=== PATIENT | female | born 1960 | race Hispanic/Latino ===

== ENCOUNTER 2019-09-29 15:30 | Outpatient (CLI) | payer BC ==
--- NOTE | 2019-09-29 16:01 | RAD ---
Left knee 2 views HISTORY: Left knee pain. FINDINGS: Mild tricompartmental joint space narrowing. Moderate osteophytosis. No acute fracture, dis location, or fluid distention of the suprapatellar bursa. Mild superficial suprapatellar soft tissue swelling is apparent. There is calcification over the arterial structures. IMPRESSION : Mild to moderate osteoarthritic changes. Atherosclerosis.
--- NOTE | 2019-09-29 16:03 | RAD ---
Right knee 2 views HISTORY: Right knee pain. Findings: Mild tricompartmental osteophytosis and joint space narrowing. There are 3 tiny irregular s haped calcifications projecting over the posterior lateral aspect of the medial compartment. Small amount of fluid distends the suprapatellar bursa. No acute fracture, dislocation, or aggressive osseo us erosions. Calcifications overlie the arterial structures. IMPRESSION : Mild osteoarthritic changes. Small medial compartment intracapsular loose bodies. Small joint effusion.
== END 2019-09-29 15:31 | disposition home or self-care (01) ==
LOC: BICRAD 15:30
PROVIDERS: ATTEND Internal Medicine Rheumatology
DX: M25.561 Pain in right knee (principal); M25.562 Pain in left knee; M17.0 Bilateral primary osteoarthritis of knee; I70.90 Unspecified atherosclerosis

== ENCOUNTER 2020-03-18 18:43 | Emergency (ER) | payer BC ==
[~2020-03-18 18:43] MED LIST: Iopamidol-370 76% 500 ML 1 ML ONE
[2020-03-18] MEDS ORDERED: Ondansetron PF 4 MG/2 ML Vial ONE (21:04)
[2020-03-18] MEDS ORDERED: Ketorolac Tromethamine 30 MG/ML VIAL ONE (21:04)
[2020-03-18 21:19] LABS: Pregnancy Test - Urine (BHCG) Negative (Negative)
[2020-03-18 21:20] LABS: Bacteria/HPF 3+ HPF (None Seen); Bilirubin Negative (Negative); Blood, Urine Trace (Negative); Clarity Clear (Clear); Glucose, Urine (Dipstick) Greater than 1000 mg/dL (Negative); Ketone, Urine Greater than 150 mg/dL (Negative); Leukocyte Negative Leu/uL (Negative); Nitrite Negative (Negative); Pregu Control Background? CLEAR/WHITE (CLR/WHITE); Pregu Control Bar Appear? YES (CONTROL BAR); Protein, Urine (Dipstick) 50 mg/dL (Neg-Trace); Specific Gravity 1.029 (1.002-1.036); Specific Gravity, Urine 1.029 (1.002-1.036); Urobilinogen Normal mg/dL (Less than 2); WBC/HPF 0-3 HPF (0-3); pH, Urine 5.5 (5.0-9.0)
[2020-03-18 21:22] LABS: Hemoglobin 13.5 g/dL (12.0-16.0); Mean Corpuscular HGB CONC 33.5 g/dL (32.0-36.0); Mean Corpuscular Hemoglobin 30.8 pg (27.0-31.0); Mean Corpuscular Volume 92.1 fL (78.0-98.0); Mean Platelet Volume 7.9 fL (7.4-10.4); Platelet Count 304 thou/uL (130-400); RBC Distribution Width 11.4 % (11.5-14.5); Red Blood Cell (RBC) Count 4.37 mill/uL (4.20-5.40); White Blood Cell (WBC) Count 25.4 thou/uL (4.8-10.8)
[2020-03-18 21:38] LABS: Band 5 % (5-11); Lymphocytes 2 % (21-51); MDiff Complete? YES; Monocytes 4 % (0-10); Neutrophil 89 % (42-75); RBC Morphology Normal
[2020-03-18 21:41] LABS: ALT (SGPT) 8 U/L (8-55); AST (SGOT) 13 U/L (5-34); Albumin 3.4 g/dL (3.5-5.0); Alkaline Phosphatase 128 U/L (40-110); Anion Gap 25 mmol/L (10-20); BUN (Urea Nitrogen) 18 mg/dL (9.8-20.1); Bilirubin, Total 0.7 mg/dL (0.2-1.2); Calc. Creatinine Clearance 0 mL/min (70-130); Calcium 9.4 mg/dL (7.8-10.44); Carbon Dioxide 12 mmol/L (22-29); Chloride 98 mmol/L (98-107); Globulin 4.5 g/dL (2.4-3.5); Glucose 486 mg/dL (70-105); Potassium 4.9 mmol/L (3.5-5.1); Protein, Total 7.9 g/dL (6.0-8.3); Sodium 130 mmol/L (136-145)
[2020-03-18] MEDS ORDERED: Insulin Regular 300 UNITS/3 ML VIAL ONE (23:05)
--- NOTE | 2020-03-19 08:34 | CT ---
PRELIMINARY REPORT/[facility]/EMERGENCY AFTER HOURS PROCEDURE: EXAM: CT Abdomen and Pelvis with Intravenous Contrast CLINICAL HISTORY: Pt presents for n/v/d and epigastric discomfort starting this AM. Denies fever, vag inal bleeding, or urinary symptoms. No alleviating factors. Exacerbated by PO intake. States her son was seen for the same symptoms yesterday. TECHNIQUE: Axial computed tomography images of the abdomen and pelvis with intravenous contrast. CONTRAST: With; 60ML ISOVUE 370 COMPARISON: None provided. FINDINGS: LUNG BASES: No basilar airspace consolidation or pleural effusion. LIVER: Unremarkable. GALLBLADDER AND BILE DUCTS: Unremarkable. No calcified stone. No ductal dilation. PANCREAS: Unremarkable. SPLEEN: Unremarkable. ADRENAL GLANDS: Unremarkable. KIDNEYS, URETERS, AND BLADDER: Unremarkable. No hydronephrosis or nephrolithiasis. No ureteral or wilton dder calculi. STOMACH AND BOWEL: No obstruction. No wall thickening. No CT evidence of colitis or acute diverticuli tis. APPENDIX: No CT evidence for appendicitis. PERITONEUM: No free fluid. No free air. LYMPH NODES: No lymphadenopathy. REPRODUCTIVE: Unremarkable as visualized. VASCULATURE: No aortic aneurysm. Coronary artery atherosclerotic disease. BONES: Bilateral chronic appearing L5 pars defect with associated grade 1 anterolisthesis of L5 on S1 . Moderate L5-S1 degenerative disc disease. No acute fracture or suspicious osseous abnormality. ABDOMINAL WALL AND SOFT TISSUES: Unremarkable. IMPRESSION: No acute intra-abdominal or pelvic abnormality. ELECTRONICALLY SIGNED BY: Wilfrid Booth DO Mar 19, 2020 1:09:31 AM [employer] FINAL REPORT ABDOMEN AND PELVIC CT SCAN WITH CONTRAST: AFTER HOURS EXAM TIME: 11:31 PM. DATE: 03/18/2020. Anterolisthesis of L5 on S1 with generalized disc disease. No significant acute process. This report agrees with the preliminary report. Transcribed Date/Time: 03/19/2020 8:53 AM
== END 2020-03-19 01:30 | disposition home or self-care (01) ==
LOC: ERS 18:43
DX: R10.13 Epigastric pain (principal); R11.2 Nausea with vomiting, unspecified; E11.9 Type 2 diabetes mellitus without complications; Z79.4 Long term (current) use of insulin; I10 Essential (primary) hypertension
CPT/HCPCS: 36415; 74177; 80053; 81003; 81015; 81025; 83605; 83690; 85025; 96374; 96375; J1815; J1885; J2405; Q9967

== ENCOUNTER 2020-05-16 14:51 | Outpatient (CLI) | payer BC ==
--- NOTE | 2020-05-16 15:18 | RAD ---
3 views right ankle: 05/16/2020 COMPARISON: None HISTORY: Open wound FINDINGS: There is soft tissue swelling over the lateral malleolus. The talar dome and the ankle mort ise appear intact. There is no displaced fracture or evidence of dislocation noted. The lateral examination demonstrates soft tissue swelling overlying the anterior aspect of the right ankle. There is atherosclerotic calcification of the arterial structures at the level the ankle. There is a probable soft tissue/skin ulceration measuring 1.5 cm in craniocaudal dimension lateral to the mid/distal right fibular shaft. IMPRESSION: Probable lateral soft tissue ulceration near the fibula. Nonspecific diffuse soft tissue swelling with no acute fracture or dislocation.
== END 2020-05-16 14:52 | disposition home or self-care (01) ==
LOC: BICRAD 14:51
PROVIDERS: ATTEND Family Medicine
DX: S81.801D Unspecified open wound, right lower leg, subsequent encounter (principal); M79.89 Other specified soft tissue disorders

== ENCOUNTER 2020-06-23 15:45 | Inpatient (IN) | payer BC ==
[2020-06-23 18:35] LABS: #Eosinphils 0.2 thou/uL (0.0-0.7); #Lymphocytes 2.9 thou/uL (1.20-3.40); #Monocytes 0.4 thou/uL (0.11-0.59); #Neutrophils 4.5 thou/uL (1.40-6.50); %Basophils 0.6 % (0.0-1.0); %Eosinophils 2.9 % (0.0-10.0); %Lymphocytes 36.1 % (21.0-51.0); %Monocytes 4.5 % (0.0-10.0); %Neutrophils 55.9 % (42.0-75.0); Hemoglobin 11.5 g/dL (12.0-16.0); Mean Corpuscular HGB CONC 33.6 g/dL (32.0-36.0); Mean Corpuscular Hemoglobin 28.8 pg (27.0-31.0); Mean Corpuscular Volume 85.6 fL (78.0-98.0); Platelet Count 395 thou/uL (130-400); RBC Distribution Width 12.5 % (11.5-14.5); Red Blood Cell (RBC) Count 3.99 mill/uL (4.20-5.40)
[2020-06-23 18:53] LABS: ALT (SGPT) 9 U/L (8-55); AST (SGOT) 17 U/L (5-34); Albumin 3.3 g/dL (3.5-5.0); Alkaline Phosphatase 151 U/L (40-110); Anion Gap 11 mmol/L (10-20); BUN (Urea Nitrogen) 26 mg/dL (9.8-20.1); Bilirubin, Total 0.2 mg/dL (0.2-1.2); Calc. Creatinine Clearance 0 mL/min (70-130); Calcium 8.7 mg/dL (7.8-10.44); Carbon Dioxide 28 mmol/L (22-29); Chloride 96 mmol/L (98-107); Globulin 3.8 g/dL (2.4-3.5); Glucose 495 mg/dL (70-105); Potassium 4.6 mmol/L (3.5-5.1); Protein, Total 7.1 g/dL (6.0-8.3); Sodium 130 mmol/L (136-145)
[2020-06-23] MEDS ORDERED: Piperacillin/Tazobactam 3.375 GM VIAL ONE (20:10)
[2020-06-23] MEDS ORDERED: Vancomycin 1.5 GRAM/300 ML BAG 1.5 GM in Premix Bag 1 BAG IVPB SCH (20:30)
[2020-06-23] MEDS ORDERED: Dextrose 5% in Water 1,000 ML IV PRN (22:57)
[2020-06-23] MEDS ORDERED: Dextrose 50% Abboject 50 ML SYRINGE SLOW IVP PRN (22:57)
[2020-06-23] MEDS ORDERED: Ondansetron PF 4 MG/2 ML Vial IVP PRN (22:59)
[2020-06-23] MEDS ORDERED: Ondansetron ODT 4 MG TAB PO PRN (22:59)
[2020-06-23] MEDS ORDERED: Acetaminophen 325 MG TAB PO PRN (22:59)
[2020-06-24 00:07] VITALS: BMI 31.5
[2020-06-24] MEDS: HYDROcodone/Acetaminophen 5/325 mg Tablet PO PRN ×2 (00:31→13:14)
[2020-06-24] MEDS: Piperacillin/Tazobactam 3.375 GM in Sodium Chloride 0.9% 100 ML IVPB SCH ×4 (05:17→20:55)
[2020-06-24 05:46] LABS: #Basophils 0.1 thou/uL (0.0-0.2); #Eosinphils 0.3 thou/uL (0.0-0.7); #Lymphocytes 2.5 thou/uL (1.20-3.40); #Monocytes 0.7 thou/uL (0.11-0.59); #Neutrophils 8.9 thou/uL (1.40-6.50); %Basophils 0.4 % (0.0-1.0); %Eosinophils 2.6 % (0.0-10.0); %Lymphocytes 20.1 % (21.0-51.0); %Monocytes 5.5 % (0.0-10.0); %Neutrophils 71.3 % (42.0-75.0); Hemoglobin 10.5 g/dL (12.0-16.0); Mean Corpuscular HGB CONC 33.5 g/dL (32.0-36.0); Mean Corpuscular Hemoglobin 28.6 pg (27.0-31.0); Mean Corpuscular Volume 85.4 fL (78.0-98.0); Platelet Count 383 thou/uL (130-400); RBC Distribution Width 12.3 % (11.5-14.5); Red Blood Cell (RBC) Count 3.69 mill/uL (4.20-5.40); White Blood Cell (WBC) Count 12.4 thou/uL (4.8-10.8)
[2020-06-24 05:59] LABS: Anion Gap 14 mmol/L (10-20); BUN (Urea Nitrogen) 26 mg/dL (9.8-20.1); Calc. Creatinine Clearance 85 mL/min (70-130); Calcium 8.7 mg/dL (7.8-10.44); Carbon Dioxide 21 mmol/L (22-29); Chloride 100 mmol/L (98-107); Glucose 348 mg/dL (70-105); Potassium 4.4 mmol/L (3.5-5.1); Sodium 131 mmol/L (136-145)
[2020-06-24] MEDS: HumaLOG 300 UNITS/3 ML VIAL SC PRN ×2 (06:12→16:09)
[2020-06-24] MEDS: Losartan 25 MG TAB PO SCH (09:37)
[2020-06-24] MEDS: Famotidine 20 MG TAB PO SCH ×2 (09:37→23:00)
[2020-06-24] MEDS: Lantus 1000 UNITS/10 ML VIAL SC SCH (09:37)
[2020-06-24] MEDS: Gabapentin 300 MG CAP PO SCH ×2 (09:38→20:55)
[2020-06-24] MEDS: Enoxaparin Sodium 40 MG/0.4 ML SYRINGE SC SCH (09:39)
[2020-06-24] MEDS ORDERED: Enoxaparin Sodium 40 MG/0.4 ML SYRINGE SC SCH (12:30)
[2020-06-24 17:10] LABS: SARS-CoV-2 PCR by NAA Not Detected (NotDetected)
[2020-06-24] MEDS: VANCOMYCIN 1.25 GM/250 ML BAG 1.25 GM in Premix Bag 1 BAG IVPB SCH (20:54)
[2020-06-24] MEDS: Atorvastatin Calcium 10 MG TAB PO SCH (20:56)
[2020-06-25] MEDS: Piperacillin/Tazobactam 3.375 GM in Sodium Chloride 0.9% 100 ML IVPB SCH ×4 (05:07→20:09)
[2020-06-25] MEDS: HumaLOG 300 UNITS/3 ML VIAL SC PRN ×4 (06:49→20:23)
[2020-06-25] MEDS: Gabapentin 300 MG CAP PO SCH ×2 (08:41→20:18)
[2020-06-25] MEDS: Famotidine 20 MG TAB PO SCH ×2 (08:41→20:20)
[2020-06-25] MEDS: Losartan 25 MG TAB PO SCH (08:42)
[2020-06-25] MEDS: Enoxaparin Sodium 40 MG/0.4 ML SYRINGE SC SCH (08:42)
[2020-06-25] MEDS: Lantus 1000 UNITS/10 ML VIAL SC SCH (09:19)
[2020-06-25] MEDS: VANCOMYCIN 1.25 GM/250 ML BAG 1.25 GM in Premix Bag 1 BAG IVPB SCH (20:18)
[2020-06-25] MEDS: Atorvastatin Calcium 10 MG TAB PO SCH (20:20)
[2020-06-26 03:28] LABS: Vancomycin, Trough 24.3 ug/mL
[2020-06-26] MEDS: Piperacillin/Tazobactam 3.375 GM in Sodium Chloride 0.9% 100 ML IVPB SCH ×4 (04:57→21:33)
[2020-06-26] MEDS: HumaLOG 300 UNITS/3 ML VIAL SC PRN ×4 (05:02→22:12)
[2020-06-26 07:21] LABS: #Eosinphils 0.3 thou/uL (0.0-0.7); #Lymphocytes 2.2 thou/uL (1.20-3.40); #Monocytes 0.4 thou/uL (0.11-0.59); #Neutrophils 3.3 thou/uL (1.40-6.50); %Basophils 0.4 % (0.0-1.0); %Eosinophils 5.1 % (0.0-10.0); %Lymphocytes 34.8 % (21.0-51.0); %Monocytes 6.5 % (0.0-10.0); %Neutrophils 53.3 % (42.0-75.0); Hemoglobin 10.5 g/dL (12.0-16.0); Mean Corpuscular HGB CONC 31.6 g/dL (32.0-36.0); Mean Corpuscular Hemoglobin 27.2 pg (27.0-31.0); Mean Corpuscular Volume 86.3 fL (78.0-98.0); Mean Platelet Volume 6.9 fL (7.4-10.4); Platelet Count 344 thou/uL (130-400); RBC Distribution Width 12.4 % (11.5-14.5); Red Blood Cell (RBC) Count 3.85 mill/uL (4.20-5.40); White Blood Cell (WBC) Count 6.2 thou/uL (4.8-10.8)
[2020-06-26 07:43] LABS: Anion Gap 15 mmol/L (10-20); BUN (Urea Nitrogen) 27 mg/dL (9.8-20.1); Calc. Creatinine Clearance 87 mL/min (70-130); Calcium 8.7 mg/dL (7.8-10.44); Carbon Dioxide 19 mmol/L (22-29); Chloride 104 mmol/L (98-107); Glucose 196 mg/dL (70-105); Potassium 4.1 mmol/L (3.5-5.1); Sodium 134 mmol/L (136-145)
[2020-06-26] MEDS: Enoxaparin Sodium 40 MG/0.4 ML SYRINGE SC SCH (09:10)
[2020-06-26] MEDS: Gabapentin 300 MG CAP PO SCH ×2 (09:10→21:32)
[2020-06-26] MEDS: Famotidine 20 MG TAB PO SCH ×2 (09:10→21:32)
[2020-06-26] MEDS: Losartan 25 MG TAB PO SCH (09:11)
[2020-06-26] MEDS: Alogliptin 6.25 MG TAB PO SCH (09:11)
[2020-06-26] MEDS: Lantus 1000 UNITS/10 ML VIAL SC SCH (09:11)
[2020-06-26] MEDS ORDERED: VANCOMYCIN 1.25 GM/250 ML BAG 1.25 GM in Premix Bag 1 BAG IVPB SCH (21:00)
[2020-06-26] MEDS: HYDROcodone/Acetaminophen 5/325 mg Tablet PO PRN (21:31)
[2020-06-26] MEDS: Atorvastatin Calcium 10 MG TAB PO SCH (21:33)
[2020-06-27] MEDS: Piperacillin/Tazobactam 3.375 GM in Sodium Chloride 0.9% 100 ML IVPB SCH ×4 (03:09→21:36)
[2020-06-27 06:35] LABS: #Eosinphils 0.3 thou/uL (0.0-0.7); #Lymphocytes 2.6 thou/uL (1.20-3.40); #Monocytes 0.5 thou/uL (0.11-0.59); #Neutrophils 3.4 thou/uL (1.40-6.50); %Basophils 0.5 % (0.0-1.0); %Eosinophils 4.8 % (0.0-10.0); %Lymphocytes 37.7 % (21.0-51.0); %Monocytes 7.8 % (0.0-10.0); %Neutrophils 49.3 % (42.0-75.0); Mean Corpuscular HGB CONC 33.6 g/dL (32.0-36.0); Mean Corpuscular Hemoglobin 29.1 pg (27.0-31.0); Mean Corpuscular Volume 86.8 fL (78.0-98.0); Mean Platelet Volume 6.8 fL (7.4-10.4); Platelet Count 366 thou/uL (130-400); RBC Distribution Width 12.4 % (11.5-14.5); Red Blood Cell (RBC) Count 3.78 mill/uL (4.20-5.40); White Blood Cell (WBC) Count 6.9 thou/uL (4.8-10.8)
[2020-06-27 06:58] LABS: Anion Gap 14 mmol/L (10-20); BUN (Urea Nitrogen) 25 mg/dL (9.8-20.1); Calc. Creatinine Clearance 90 mL/min (70-130); Calcium 8.4 mg/dL (7.8-10.44); Carbon Dioxide 21 mmol/L (22-29); Chloride 106 mmol/L (98-107); Glucose 187 mg/dL (70-105); Potassium 3.7 mmol/L (3.5-5.1); Sodium 137 mmol/L (136-145)
[2020-06-27] MEDS: Famotidine 20 MG TAB PO SCH ×2 (08:11→21:37)
[2020-06-27] MEDS: Enoxaparin Sodium 40 MG/0.4 ML SYRINGE SC SCH (08:11)
[2020-06-27] MEDS: Losartan 25 MG TAB PO SCH (08:11)
[2020-06-27] MEDS: Alogliptin 6.25 MG TAB PO SCH (08:11)
[2020-06-27] MEDS: Lantus 1000 UNITS/10 ML VIAL SC SCH (08:11)
[2020-06-27] MEDS: Gabapentin 300 MG CAP PO SCH ×2 (08:12→21:37)
[2020-06-27] MEDS: HumaLOG 300 UNITS/3 ML VIAL SC PRN ×3 (11:37→21:38)
[2020-06-27] MEDS: HYDROcodone/Acetaminophen 5/325 mg Tablet PO PRN (13:55)
[2020-06-27] MEDS: Vancomycin HCl 25 MG/ML Oral PO SCH ×2 (16:33→23:14)
[2020-06-27] MEDS: Atorvastatin Calcium 10 MG TAB PO SCH (21:38)
[2020-06-28] MEDS: Piperacillin/Tazobactam 3.375 GM in Sodium Chloride 0.9% 100 ML IVPB SCH ×4 (03:20→20:25)
[2020-06-28] MEDS: HumaLOG 300 UNITS/3 ML VIAL SC PRN ×4 (05:29→20:31)
[2020-06-28] MEDS: Vancomycin HCl 25 MG/ML Oral PO SCH ×4 (05:29→23:21)
[2020-06-28] MEDS: Famotidine 20 MG TAB PO SCH ×2 (10:26→20:25)
[2020-06-28] MEDS: Alogliptin 6.25 MG TAB PO SCH (10:26)
[2020-06-28] MEDS: Gabapentin 300 MG CAP PO SCH ×2 (10:26→20:26)
[2020-06-28] MEDS: Enoxaparin Sodium 40 MG/0.4 ML SYRINGE SC SCH (10:27)
[2020-06-28] MEDS: Lantus 1000 UNITS/10 ML VIAL SC SCH (10:27)
[2020-06-28] MEDS: Losartan 25 MG TAB PO SCH (10:27)
[2020-06-28] MEDS: Atorvastatin Calcium 10 MG TAB PO SCH (20:25)
[2020-06-29] MEDS: Piperacillin/Tazobactam 3.375 GM in Sodium Chloride 0.9% 100 ML IVPB SCH ×3 (02:26→14:51)
[2020-06-29] MEDS: HumaLOG 300 UNITS/3 ML VIAL SC PRN ×3 (05:38→20:56)
[2020-06-29] MEDS: Vancomycin HCl 25 MG/ML Oral PO SCH ×3 (05:38→18:29)
[2020-06-29] MEDS: Losartan 25 MG TAB PO SCH (07:59)
[2020-06-29] MEDS: Enoxaparin Sodium 40 MG/0.4 ML SYRINGE SC SCH (07:59)
[2020-06-29] MEDS: Lantus 1000 UNITS/10 ML VIAL SC SCH (08:00)
[2020-06-29] MEDS: Alogliptin 6.25 MG TAB PO SCH (08:00)
[2020-06-29] MEDS: Gabapentin 300 MG CAP PO SCH ×2 (08:00→20:53)
[2020-06-29] MEDS: Famotidine 20 MG TAB PO SCH ×2 (08:05→20:53)
[2020-06-29] MEDS: HYDROcodone/Acetaminophen 5/325 mg Tablet PO PRN (14:47)
[2020-06-29] MEDS ORDERED: Floranex Packet PO SCH (16:00)
[2020-06-29] MEDS: Atorvastatin Calcium 10 MG TAB PO SCH (20:53)
[2020-06-30] MEDS: Vancomycin HCl 25 MG/ML Oral PO SCH ×4 (00:26→17:49)
[2020-06-30 06:23] LABS: Hemoglobin A1c 11.6 % (4.0-6.0)
[2020-06-30 06:40] LABS: Anion Gap 11 mmol/L (10-20); BUN (Urea Nitrogen) 23 mg/dL (9.8-20.1); Calc. Creatinine Clearance 85 mL/min (70-130); Calcium 9.4 mg/dL (7.8-10.44); Carbon Dioxide 27 mmol/L (22-29); Chloride 102 mmol/L (98-107); Glucose 165 mg/dL (70-105); Potassium 4.4 mmol/L (3.5-5.1); Sodium 136 mmol/L (136-145)
[2020-06-30] MEDS: Alogliptin 6.25 MG TAB PO SCH (08:01)
[2020-06-30] MEDS: Gabapentin 300 MG CAP PO SCH (08:01)
[2020-06-30] MEDS: Famotidine 20 MG TAB PO SCH (08:01)
[2020-06-30] MEDS: Enoxaparin Sodium 40 MG/0.4 ML SYRINGE SC SCH (08:02)
[2020-06-30] MEDS: Losartan 25 MG TAB PO SCH (08:02)
[2020-06-30] MEDS ORDERED: Lidocaine 1% (PF) 30 ML VIAL ONE (08:17)
[2020-06-30] MEDS: Lantus 1000 UNITS/10 ML VIAL SC SCH (08:43)
[2020-06-30] MEDS ORDERED: Morphine 4 MG/ML VIAL SLOW IVP SCH (08:45)
[2020-06-30] MEDS ORDERED: Floranex Packet PO SCH (09:00)
[2020-06-30 16:41] VITALS: BP 138/83; TEMP 97.7
[2020-06-30] MEDS: HumaLOG 300 UNITS/3 ML VIAL SC PRN (17:08)
== END 2020-06-30 18:14 | disposition home or self-care (01) | DRG 580 ==
LOC: ERS 15:45 → T4-A 21:15
PROVIDERS: ADMIT Internal Medicine; ATTEND Hospitalist
PROC: 0LBS0ZZ Excision of Right Ankle Tendon, Open Approach (ICD-10-PCS; principal; 2020-06-30)
DX: L03.115 Cellulitis of right lower limb (principal); A04.72 Enterocolitis due to Clostridium difficile, not specified as recurrent; E11.52 Type 2 diabetes mellitus with diabetic peripheral angiopathy with gangrene; I96 Gangrene, not elsewhere classified; L97.419 Non-pressure chronic ulcer of right heel and midfoot with unspecified severity; L03.116 Cellulitis of left lower limb; E11.628 Type 2 diabetes mellitus with other skin complications; L02.416 Cutaneous abscess of left lower limb; E11.41 Type 2 diabetes mellitus with diabetic mononeuropathy; E78.5 Hyperlipidemia, unspecified; E11.621 Type 2 diabetes mellitus with foot ulcer; Z23 Encounter for immunization; E11.65 Type 2 diabetes mellitus with hyperglycemia; B96.1 Klebsiella pneumoniae [K. pneumoniae] as the cause of diseases classified elsewhere; B96.4 Proteus (mirabilis) (morganii) as the cause of diseases classified elsewhere; X10.1XXS Contact with hot food, sequela; T25.011 Burn of unspecified degree of right ankle; Z83.3 Family history of diabetes mellitus; Z79.899 Other long term (current) drug therapy; Z79.4 Long term (current) use of insulin
CPT/HCPCS: 36415; 36416; 80048; 80053; 80202; 83036; 85025; 85652; 86140; 87040; 87070; 87077; 87186; 87205; 87324; 87449; 87493; 87635; 90471; 90732; 96365; 96367; G0009; J1650; J1815; J2001; J2270; J2543; J3370; J3490; U0003; U0005

== ENCOUNTER 2022-04-10 17:32 | Inpatient (IN) | payer BC, OTHER, SELFPAY ==
[2022-04-10 18:31] LABS: Hemoglobin 12.1 g/dL (12.0-16.0); Mean Corpuscular HGB CONC 34.1 g/dL (32.0-36.0); Mean Corpuscular Hemoglobin 31.6 pg (27.0-31.0); Mean Corpuscular Volume 92.7 fl (78.0-98.0); Mean Platelet Volume 7.7 fL (7.4-10.4); Platelet Count 391 10x3/uL (130-400); RBC Distribution Width 11.8 % (11.5-14.5); Red Blood Cell (RBC) Count 3.85 mill/uL (4.20-5.40); White Blood Cell (WBC) Count 21.5 10x3/uL (4.8-10.8)
[2022-04-10 18:52] LABS: ALT (SGPT) 12 U/L (8-55); AST (SGOT) 24 U/L (5-34); Albumin 2.8 g/dL (3.5-5.0); Alkaline Phosphatase 130 U/L (40-110); Anion Gap 20 mmol/L (10-20); BUN (Urea Nitrogen) 25 mg/dL (9.8-20.1); Bilirubin, Total 0.5 mg/dL (0.2-1.2); Calc. Creatinine Clearance 0 mL/min (70-130); Calcium 9.2 mg/dL (7.8-10.44); Carbon Dioxide 19 mmol/L (22-29); Chloride 103 mmol/L (98-107); Estimated GFR 41; Globulin 4.1 g/dL (2.4-3.5); Lipase Less than 4 U/L (8-78); Potassium 4.4 mmol/L (3.5-5.1); Protein, Total 6.9 g/dL (6.0-8.3); Sodium 138 mmol/L (136-145)
[2022-04-10 18:54] LABS: Band 9 % (5-11); Lymphocytes 11 % (21-51); MDiff Complete? YES; Monocytes 1 % (0-10); Neutrophil 78 % (42-75); Platelet Morphology Comment Appears Adequate; RBC Morphology Normal
[2022-04-10 18:56] LABS: Glucose 621 mg/dL (70-105)
[2022-04-10] MEDS ORDERED: Aspirin Chewable 81 MG TAB ONE (19:16)
[2022-04-10] MEDS ORDERED: Ondansetron PF 4 MG/2 ML Vial ONE ×2 (19:16→21:55)
[2022-04-10 19:30] LABS: CKMB 6.9 ng/mL (0-6.6)
[2022-04-10] MEDS ORDERED: Aspirin 300 MG Suppository ONE (19:30)
[2022-04-10] MEDS ORDERED: INSULIN REGULAR IN 0.9 % NACL 100 UNIT/100 ML BAG ONE (19:50)
[2022-04-10 20:01] LABS: Actual Bicarbonate (HCO3v) 20 mEq/L (22-28); Analyzer IN Cardio ER; Base Excess -4.7 mEq/L (-2.0 to +3.0); Calcium, Ionized (venous) 1.09 mmol/L (1.16-1.32); Chloride (VBG) 101 mmol/L (98-106); Hemoglobin (Hb) 13.5 g/dL (11.7-16.0); Sodium 134.8 mmol/L (133-146); pH (venous) 7.37 (7.32-7.43)
[2022-04-10 20:04] LABS: Potassium (VBG) 7.21 mmol/L (3.70-5.30)
[2022-04-10] MEDS ORDERED: NS 0.9% w/ 20 MEQ KCL 1,000 ML IV PRN (22:25)
[2022-04-10] MEDS ORDERED: Sodium Chloride 0.9% 1,000 ML IV PRN ×4 (22:25)
[2022-04-10] MEDS ORDERED: Dextrose 5 %-0.45 % NaCl 1,000 ML IV PRN (22:25)
[2022-04-10] MEDS ORDERED: Electrolyte Replacement Protocol 1 EACH IVPB PRN (22:25)
[2022-04-10] MEDS ORDERED: HUMULIN R 100 UNITS in Sodium Chloride 0.9% 100 ML IVPB SCH (22:30)
[2022-04-10 22:40] LABS: SARS-CoV-2 NAA Rapid Test Not Detected (NotDetected)
[2022-04-10 22:41] LABS: Critical Call Chem Troponin I RESULT DECREASING; Troponin I 2.851 ng/mL (< 0.028)
[2022-04-10 22:48] LABS: Lactic Acid 3.1 mmol/L (0.5-2.2)
[2022-04-10 23:00] LABS: Bacteria/HPF 4+ HPF (None Seen); Bilirubin Negative (Negative); Blood, Urine 1+ (Negative); Clarity Clear (Clear); Glucose, Urine (Dipstick) Greater than 1000 mg/dL (Negative); Ketone, Urine 60 mg/dL (Negative); Leukocyte Negative Leu/uL (Negative); Nitrite Negative (Negative); Protein, Urine (Dipstick) 300 mg/dL (Neg-Trace); Renal Epithelial 0-3 HPF (None Seen); Specific Gravity, Urine 1.032 (1.002-1.036); Squamous Epithelial 0-3 HPF (0-3); Urobilinogen Normal mg/dL (Less than 2); WBC/HPF 0-3 HPF (0-3); pH, Urine 6.5 (5.0-9.0)
[2022-04-10] MEDS ORDERED: Pantoprazole 40 MG VIAL IVP SCH (23:00)
[2022-04-11 00:12] LABS: Anion Gap 14 mmol/L (10-20); BUN (Urea Nitrogen) 24 mg/dL (9.8-20.1); Calc. Creatinine Clearance 64 mL/min (70-130); Calcium 8.3 mg/dL (7.8-10.44); Carbon Dioxide 20 mmol/L (22-29); Chloride 113 mmol/L (98-107); Estimated GFR 58; Glucose 300 mg/dL (70-105); Potassium 3.1 mmol/L (3.5-5.1); Sodium 144 mmol/L (136-145)
[2022-04-11] MEDS: NS 0.9% w/ 20 MEQ KCL 1,000 ML IV PRN ×2 (00:26→03:06)
[2022-04-11 01:42] LABS: Troponin I 2.921 ng/mL (< 0.028)
[2022-04-11 02:30] LABS: Lactic Acid 2.1 mmol/L (0.5-2.2)
[2022-04-11] MEDS: Ondansetron PF 4 MG/2 ML Vial IVP PRN ×4 (03:19→20:58)
[2022-04-11 03:41] LABS: #Lymphocytes 2.1 thou/uL (1.20-3.40); #Monocytes 0.9 thou/uL (0.11-0.59); %Basophils 0.1 % (0.0-1.0); %Eosinophils 0.1 % (0.0-10.0); %Lymphocytes 9.4 % (21.0-51.0); %Monocytes 4.1 % (0.0-10.0); %Neutrophils 86.3 % (42.0-75.0); Hemoglobin 10.8 g/dL (12.0-16.0); Mean Corpuscular HGB CONC 35.3 g/dL (32.0-36.0); Mean Corpuscular Hemoglobin 33.6 pg (27.0-31.0); Mean Corpuscular Volume 95.3 fl (78.0-98.0); Mean Platelet Volume 7.5 fL (7.4-10.4); Platelet Count 361 10x3/uL (130-400); RBC Distribution Width 11.8 % (11.5-14.5); Red Blood Cell (RBC) Count 3.22 mill/uL (4.20-5.40)
[2022-04-11 03:49] LABS: Hemoglobin A1c 13.7 % (4.0-6.0)
[2022-04-11 04:01] LABS: Anion Gap 18 mmol/L (10-20); BUN (Urea Nitrogen) 25 mg/dL (9.8-20.1); Calc. Creatinine Clearance 64 mL/min (70-130); Calcium 8.4 mg/dL (7.8-10.44); Carbon Dioxide 16 mmol/L (22-29); Chloride 112 mmol/L (98-107); Estimated GFR 58; Glucose 255 mg/dL (70-105); Potassium 4.3 mmol/L (3.5-5.1); Sodium 142 mmol/L (136-145)
[2022-04-11 04:02] LABS: Anion Gap 17 mmol/L (10-20); BUN (Urea Nitrogen) 25 mg/dL (9.8-20.1); Calc. Creatinine Clearance 65 mL/min (70-130); Calcium 8.4 mg/dL (7.8-10.44); Carbon Dioxide 16 mmol/L (22-29); Cardiac Risk 5.7 (Less than 4.5); Chloride 114 mmol/L (98-107); Cholesterol 283 mg/dl (< 200 Desired); Estimated GFR 59; Glucose 256 mg/dL (70-105); HDL Cholesterol 50 mg/dL (>60 Neg Risk); LDL Cholesterol, Calculated 181 mg/dL; Magnesium 1.9 mg/dL (1.6-2.6); Potassium 4.1 mmol/L (3.5-5.1); Sodium 143 mmol/L (136-145); Triglycerides 262 mg/dL (Less than 150)
[2022-04-11 04:09] LABS: Critical Call Chem Troponin I RESULT DECREASING; Troponin I 2.465 ng/mL (< 0.028)
[2022-04-11] MEDS: cefTRIAXone\\ROCEPHIN 1 GM in Sodium Chloride 0.9% 100 ML IVPB SCH (05:36)
[2022-04-11] MEDS: Azithromycin 500 MG in Sodium Chloride 0.9% 250 ML 250 ML IVPB SCH (06:38)
[2022-04-11] MEDS ORDERED: Magnesium 2 GM/50 ML(in water) 2 GM in Premix Bag 1 BAG IVPB SCH (08:00)
[2022-04-11 08:03] LABS: Anion Gap 18 mmol/L (10-20); BUN (Urea Nitrogen) 23 mg/dL (9.8-20.1); Calc. Creatinine Clearance 62 mL/min (70-130); Calcium 7.9 mg/dL (7.8-10.44); Carbon Dioxide 12 mmol/L (22-29); Chloride 120 mmol/L (98-107); Estimated GFR 56; Glucose 245 mg/dL (70-105); Magnesium 1.8 mg/dL (1.6-2.6); Potassium 3.5 mmol/L (3.5-5.1); Sodium 146 mmol/L (136-145)
[2022-04-11] MEDS: Famotidine 20 MG TAB PO SCH ×2 (08:20→20:52)
[2022-04-11] MEDS: D5 1/2 NS w/20 mEq KCL 1,000 ML IV PRN ×2 (08:29→16:21)
[2022-04-11] MEDS ORDERED: Potassium Chloride 20 MEQ TAB PO SCH (08:45)
[2022-04-11 09:09] LABS: Legionella Urinary Ag Negative (Negative); Strep pneumo Urine Ag NEGATIVE (NEGATIVE)
[2022-04-11] MEDS ORDERED: hydrALAZINE 20 MG/ML VIAL SLOW IVP PRN (10:27)
[2022-04-11] MEDS ORDERED: Morphine 2 MG/ML VIAL SLOW IVP PRN (10:30)
[2022-04-11] MEDS ORDERED: Aspirin 81 mg Enteric Coated Tablet PO SCH (10:30)
[2022-04-11] MEDS ORDERED: Morphine 4 MG/ML VIAL SLOW IVP SCH (10:30)
[2022-04-11] MEDS ORDERED: Prochlorperazine Edisylate 10 MG in Sodium Chloride 0.9% 50 ML IVPB PRN (10:30)
[2022-04-11] MEDS ORDERED: Dextrose 5% in Water 1,000 ML IV PRN (16:07)
[2022-04-11] MEDS ORDERED: HumaLOG 300 UNITS/3 ML VIAL SC PRN ×2 (16:07)
[2022-04-11] MEDS ORDERED: Dextrose 50% Abboject 50 ML SYRINGE SLOW IVP PRN (16:07)
[2022-04-11] MEDS ORDERED: Insulin Glargine 30 UNITS/0.3 ML VIAL SC SCH (16:15)
[2022-04-11] MEDS: Lactated Ringer's 1,000 ML IV SCH (16:38)
[2022-04-11] MEDS: Gabapentin 300 MG CAP PO SCH (20:51)
[2022-04-11] MEDS: Atorvastatin Calcium 10 MG TAB PO SCH (20:51)
[2022-04-11] MEDS: Insulin Glargine 30 UNITS/0.3 ML VIAL SC SCH (20:53)
[2022-04-11] MEDS ORDERED: Pravastatin Sodium 40 MG TAB PO SCH (21:00)
[2022-04-11 21:45] LABS: Anion Gap 15 mmol/L (10-20); BUN (Urea Nitrogen) 23 mg/dL (9.8-20.1); Calc. Creatinine Clearance 61 mL/min (70-130); Calcium 8.1 mg/dL (7.8-10.44); Carbon Dioxide 14 mmol/L (22-29); Chloride 118 mmol/L (98-107); Estimated GFR 55; Glucose 200 mg/dL (70-105); Potassium 4.6 mmol/L (3.5-5.1); Sodium 142 mmol/L (136-145)
[2022-04-12] MEDS: Lactated Ringer's 1,000 ML IV SCH ×4 (00:46→21:51)
[2022-04-12] MEDS: Ondansetron PF 4 MG/2 ML Vial IVP PRN ×2 (05:55→13:09)
[2022-04-12] MEDS: cefTRIAXone\\ROCEPHIN 1 GM in Sodium Chloride 0.9% 100 ML IVPB SCH (06:23)
[2022-04-12] MEDS: Azithromycin 500 MG in Sodium Chloride 0.9% 250 ML 250 ML IVPB SCH (06:23)
[2022-04-12] MEDS ORDERED: Sodium Bicarb 50 MEQ/50 ML Abboject 8.4% SYRINGE IVP SCH (09:00)
[2022-04-12 09:19] LABS: #Basophils 0.1 thou/uL (0.0-0.2); #Eosinphils 0.1 thou/uL (0.0-0.7); #Lymphocytes 3.3 thou/uL (1.20-3.40); #Monocytes 0.6 thou/uL (0.11-0.59); #Neutrophils 18.7 thou/uL (1.40-6.50); %Basophils 0.3 % (0.0-1.0); %Eosinophils 0.3 % (0.0-10.0); %Lymphocytes 14.6 % (21.0-51.0); %Monocytes 2.7 % (0.0-10.0); %Neutrophils 82.1 % (42.0-75.0); Hemoglobin 11.2 g/dL (12.0-16.0); Mean Corpuscular HGB CONC 30.5 g/dL (32.0-36.0); Mean Corpuscular Hemoglobin 29.5 pg (27.0-31.0); Mean Corpuscular Volume 96.7 fl (78.0-98.0); Mean Platelet Volume 8.2 fL (7.4-10.4); Platelet Count 395 10x3/uL (130-400); RBC Distribution Width 12.5 % (11.5-14.5); Red Blood Cell (RBC) Count 3.78 mill/uL (4.20-5.40); White Blood Cell (WBC) Count 22.8 10x3/uL (4.8-10.8)
[2022-04-12] MEDS: Aspirin 81 mg Enteric Coated Tablet PO SCH (09:24)
[2022-04-12] MEDS: Insulin Glargine 30 UNITS/0.3 ML VIAL SC SCH ×2 (09:24→21:51)
[2022-04-12] MEDS: Gabapentin 300 MG CAP PO SCH ×2 (09:24→21:51)
[2022-04-12] MEDS: Famotidine 20 MG TAB PO SCH ×2 (09:24→21:50)
[2022-04-12 09:32] LABS: Calcium 8.8 mg/dL (7.8-10.44); Chloride 118 mmol/L (98-107); Potassium 4.2 mmol/L (3.5-5.1); Sodium 142 mmol/L (136-145)
[2022-04-12 09:33] LABS: Glucose 166 mg/dL (70-105)
[2022-04-12 09:34] LABS: Anion Gap 13 mmol/L (10-20); Carbon Dioxide 15 mmol/L (22-29)
[2022-04-12 09:36] LABS: Calc. Creatinine Clearance 70 mL/min (70-130); Estimated GFR 64
[2022-04-12 09:37] LABS: BUN (Urea Nitrogen) 20 mg/dL (9.8-20.1)
[2022-04-12 09:38] LABS: Magnesium 2.2 mg/dL (1.6-2.6)
[2022-04-12] MEDS: Sodium Bicarbonate 50 MEQ in Dextrose 5% in Water 250 ML IV SCH ×2 (11:00→12:29)
[2022-04-12] MEDS ORDERED: Nitroglycerin 100MG/250ML BOT 0 ML ONE (11:24)
[2022-04-12] MEDS ORDERED: Verapamil 5 MG/2 ML VIAL ONE (11:24)
[2022-04-12] MEDS ORDERED: Heparin 10,000 UNITS/ 10 ML VIAL ONE (11:24)
[2022-04-12] MEDS ORDERED: Lidocaine 1% (PF) 30 ML VIAL ONE (11:24)
[2022-04-12] MEDS: Atorvastatin Calcium 10 MG TAB PO SCH (21:50)
[2022-04-12] MEDS: metroNIDAZOLE 500 MG in Premix Bag 1 BAG IVPB SCH (21:52)
[2022-04-13 03:51] LABS: #Basophils 0.1 thou/uL (0.0-0.2); #Eosinphils 0.2 thou/uL (0.0-0.7); #Lymphocytes 4.9 thou/uL (1.20-3.40); #Monocytes 0.6 thou/uL (0.11-0.59); #Neutrophils 6.1 thou/uL (1.40-6.50); %Basophils 0.5 % (0.0-1.0); %Eosinophils 1.9 % (0.0-10.0); %Lymphocytes 41.1 % (21.0-51.0); %Monocytes 5.1 % (0.0-10.0); %Neutrophils 51.4 % (42.0-75.0); Hemoglobin 9.7 g/dL (12.0-16.0); Mean Corpuscular HGB CONC 32.9 g/dL (32.0-36.0); Mean Corpuscular Hemoglobin 31.1 pg (27.0-31.0); Mean Corpuscular Volume 94.6 fl (78.0-98.0); Mean Platelet Volume 7.7 fL (7.4-10.4); Platelet Count 278 10x3/uL (130-400); RBC Distribution Width 11.9 % (11.5-14.5); Red Blood Cell (RBC) Count 3.12 mill/uL (4.20-5.40); White Blood Cell (WBC) Count 11.9 10x3/uL (4.8-10.8)
[2022-04-13 03:56] LABS: ALT (SGPT) 8 U/L (8-55); AST (SGOT) 17 U/L (5-34); Albumin 1.8 g/dL (3.5-5.0); Alkaline Phosphatase 75 U/L (40-110); Anion Gap 8 mmol/L (10-20); BUN (Urea Nitrogen) 15 mg/dL (9.8-20.1); Bilirubin, Total 0.2 mg/dL (0.2-1.2); Calc. Creatinine Clearance 90 mL/min (70-130); Calcium 7.6 mg/dL (7.8-10.44); Carbon Dioxide 20 mmol/L (22-29); Chloride 115 mmol/L (98-107); Estimated GFR 87; Globulin 2.6 g/dL (2.4-3.5); Potassium 3.4 mmol/L (3.5-5.1); Protein, Total 4.4 g/dL (6.0-8.3); Sodium 140 mmol/L (136-145)
[2022-04-13 03:59] LABS: Glucose 59 mg/dL (70-105)
[2022-04-13] MEDS: cefTRIAXone\\ROCEPHIN 1 GM in Sodium Chloride 0.9% 100 ML IVPB SCH (05:31)
[2022-04-13] MEDS: Azithromycin 500 MG in Sodium Chloride 0.9% 250 ML 250 ML IVPB SCH (05:31)
[2022-04-13] MEDS: metroNIDAZOLE 500 MG in Premix Bag 1 BAG IVPB SCH ×3 (05:32→21:12)
[2022-04-13] MEDS ORDERED: Potassium Chloride 20 MEQ TAB PO SCH (05:45)
[2022-04-13] MEDS ORDERED: Magnesium 2 GM/50 ML(in water) 2 GM in Premix Bag 1 BAG IVPB SCH (08:00)
[2022-04-13] MEDS: Aspirin 81 mg Enteric Coated Tablet PO SCH (08:32)
[2022-04-13] MEDS: Famotidine 20 MG TAB PO SCH ×2 (08:33→21:11)
[2022-04-13] MEDS: Gabapentin 300 MG CAP PO SCH ×2 (08:33→21:11)
[2022-04-13] MEDS ORDERED: Insulin Glargine 30 UNITS/0.3 ML VIAL SC SCH (11:45)
[2022-04-13] MEDS: Insulin Glargine 30 UNITS/0.3 ML VIAL SC SCH ×2 (13:08→21:12)
[2022-04-13] MEDS: Atorvastatin Calcium 10 MG TAB PO SCH (21:12)
[2022-04-14] MEDS: cefTRIAXone\\ROCEPHIN 1 GM in Sodium Chloride 0.9% 100 ML IVPB SCH (05:38)
[2022-04-14] MEDS: Azithromycin 500 MG in Sodium Chloride 0.9% 250 ML 250 ML IVPB SCH (05:39)
[2022-04-14] MEDS: metroNIDAZOLE 500 MG in Premix Bag 1 BAG IVPB SCH ×3 (05:39→21:28)
[2022-04-14 07:29] LABS: #Basophils 0.1 thou/uL (0.0-0.2); #Eosinphils 0.2 thou/uL (0.0-0.7); #Lymphocytes 3.6 thou/uL (1.20-3.40); #Monocytes 0.5 thou/uL (0.11-0.59); #Neutrophils 4.3 thou/uL (1.40-6.50); %Basophils 0.8 % (0.0-1.0); %Eosinophils 2.7 % (0.0-10.0); %Lymphocytes 41.7 % (21.0-51.0); %Monocytes 5.9 % (0.0-10.0); Mean Corpuscular Hemoglobin 31.4 pg (27.0-31.0); Mean Corpuscular Volume 95.1 fl (78.0-98.0); Mean Platelet Volume 7.5 fL (7.4-10.4); Platelet Count 290 10x3/uL (130-400); RBC Distribution Width 11.8 % (11.5-14.5); Red Blood Cell (RBC) Count 3.83 mill/uL (4.20-5.40); White Blood Cell (WBC) Count 8.7 10x3/uL (4.8-10.8)
[2022-04-14 07:48] LABS: Anion Gap 10 mmol/L (10-20); BUN (Urea Nitrogen) 14 mg/dL (9.8-20.1); Calc. Creatinine Clearance 81 mL/min (70-130); Calcium 7.7 mg/dL (7.8-10.44); Carbon Dioxide 19 mmol/L (22-29); Chloride 112 mmol/L (98-107); Estimated GFR 77; Glucose 116 mg/dL (70-105); Magnesium 2.3 mg/dL (1.6-2.6); Potassium 4.3 mmol/L (3.5-5.1); Sodium 137 mmol/L (136-145)
[2022-04-14] MEDS ORDERED: Meclizine HCl 25 MG TAB PO PRN (08:51)
[2022-04-14] MEDS: Aspirin 81 mg Enteric Coated Tablet PO SCH (08:51)
[2022-04-14] MEDS: Gabapentin 300 MG CAP PO SCH (08:51)
[2022-04-14] MEDS: Famotidine 20 MG TAB PO SCH ×2 (08:51→21:23)
[2022-04-14] MEDS: Insulin Glargine 30 UNITS/0.3 ML VIAL SC SCH (08:52)
[2022-04-14] MEDS ORDERED: Loperamide HCl 2 MG CAP PO PRN (09:12)
[2022-04-14] MEDS ORDERED: HumaLOG 300 UNITS/3 ML VIAL SC PRN (12:24)
[2022-04-14] MEDS: Carvedilol 3.125 MG TAB PO SCH (16:49)
[2022-04-14] MEDS: Acetaminophen 325 MG TAB PO PRN (16:50)
[2022-04-14] MEDS ORDERED: Communication Order-Pharmacy FS SCH (18:45)
[2022-04-14] MEDS: Sodium Chloride 0.9% 1,000 ML IV SCH (21:17)
[2022-04-14] MEDS: Saccharomyces boulardii 250 MG CAP PO SCH (21:23)
[2022-04-14] MEDS: Atorvastatin Calcium 40 MG TAB PO SCH (21:23)
[2022-04-15] MEDS: cefTRIAXone\\ROCEPHIN 1 GM in Sodium Chloride 0.9% 100 ML IVPB SCH (04:32)
[2022-04-15] MEDS: Acetaminophen 325 MG TAB PO PRN (04:38)
[2022-04-15 04:39] LABS: #Eosinphils 0.3 thou/uL (0.0-0.7); #Lymphocytes 2.9 thou/uL (1.20-3.40); #Monocytes 0.4 thou/uL (0.11-0.59); #Neutrophils 4.1 thou/uL (1.40-6.50); %Basophils 0.4 % (0.0-1.0); %Eosinophils 3.3 % (0.0-10.0); %Lymphocytes 37.6 % (21.0-51.0); %Monocytes 5.5 % (0.0-10.0); %Neutrophils 53.3 % (42.0-75.0); Mean Corpuscular HGB CONC 33.2 g/dL (32.0-36.0); Mean Corpuscular Hemoglobin 31.4 pg (27.0-31.0); Mean Corpuscular Volume 94.6 fl (78.0-98.0); Mean Platelet Volume 7.6 fL (7.4-10.4); Platelet Count 285 10x3/uL (130-400); RBC Distribution Width 11.8 % (11.5-14.5); Red Blood Cell (RBC) Count 3.52 mill/uL (4.20-5.40); White Blood Cell (WBC) Count 7.8 10x3/uL (4.8-10.8)
[2022-04-15 05:05] LABS: Anion Gap 9 mmol/L (10-20); BUN (Urea Nitrogen) 17 mg/dL (9.8-20.1); Calc. Creatinine Clearance 68 mL/min (70-130); Calcium 7.4 mg/dL (7.8-10.44); Carbon Dioxide 20 mmol/L (22-29); Chloride 111 mmol/L (98-107); Estimated GFR 62; Glucose 219 mg/dL (70-105); Magnesium 2.1 mg/dL (1.6-2.6); Phosphorus 3.1 mg/dL (2.3-4.7); Sodium 136 mmol/L (136-145)
[2022-04-15] MEDS: Azithromycin 500 MG in Sodium Chloride 0.9% 250 ML 250 ML IVPB SCH (05:20)
[2022-04-15] MEDS: Sodium Chloride 0.9% 1,000 ML IV SCH (06:16)
[2022-04-15] MEDS: Ondansetron PF 4 MG/2 ML Vial IVP PRN (06:27)
[2022-04-15] MEDS: metroNIDAZOLE 500 MG in Premix Bag 1 BAG IVPB SCH ×2 (06:29→14:08)
[2022-04-15] MEDS ORDERED: Heparin 10,000 UNITS/ 10 ML VIAL ONE ×2 (06:31→11:12)
[2022-04-15] MEDS ORDERED: Nitroglycerin 100MG/250ML BOT 0 ML ONE (06:31)
[2022-04-15] MEDS ORDERED: Adenosine 6 MG/2 ML VIAL ONE (06:31)
[2022-04-15] MEDS ORDERED: Verapamil 5 MG/2 ML VIAL ONE ×2 (06:31→11:12)
[2022-04-15] MEDS ORDERED: Lidocaine 1% PF 5 ML VIAL ONE (06:31)
[2022-04-15] MEDS: Carvedilol 3.125 MG TAB PO SCH ×2 (06:37→17:39)
[2022-04-15] MEDS: Famotidine 20 MG TAB PO SCH ×2 (06:37→21:27)
[2022-04-15] MEDS ORDERED: Insulin Glargine 30 UNITS/0.3 ML VIAL SC SCH (09:00)
[2022-04-15] MEDS: Aspirin 81 mg Enteric Coated Tablet PO SCH (10:11)
[2022-04-15] MEDS: Losartan 25 MG TAB PO SCH (10:11)
[2022-04-15] MEDS ORDERED: Diphenoxylate HCl/Atropine Tablet PO SCH (10:15)
[2022-04-15] MEDS ORDERED: Communication Order-Pharmacy FS PRN (10:15)
[2022-04-15] MEDS ORDERED: Sodium Chloride 0.9% 1,000 ML IV SCH (10:15)
[2022-04-15] MEDS ORDERED: Nitroglycerin 100MG/250ML BOT 250 ML ONE (11:12)
[2022-04-15] MEDS ORDERED: Lidocaine 1% (PF) 30 ML VIAL ONE (11:12)
[2022-04-15 11:39] LABS: Campy jejuni + coli by PCR Negative (Negative); STEC Shiga Toxin 1+2 Negative (Negative); Salmonella spp. by PCR Negative (Negative); Shigella spp + EIEC by PCR Negative (Negative)
[2022-04-15] MEDS ORDERED: Midazolam HCl 2 mg/2 ml Vial ONE (12:06)
[2022-04-15] MEDS ORDERED: FENTANYL 50 MCG/ML 1 ML VIAL ONE (12:06)
[2022-04-15] MEDS ORDERED: hydrALAZINE 20 MG/ML VIAL ONE (12:35)
[2022-04-15] MEDS ORDERED: Iopamidol 370 76% 100 ML VIAL ONE (12:50)
[2022-04-15] MEDS ORDERED: HumaLOG 300 UNITS/3 ML VIAL SC PRN (21:09)
[2022-04-15] MEDS: HumaLOG 300 UNITS/3 ML VIAL SC PRN (21:27)
[2022-04-15] MEDS: Atorvastatin Calcium 40 MG TAB PO SCH (21:27)
[2022-04-15] MEDS: Saccharomyces boulardii 250 MG CAP PO SCH (21:27)
[2022-04-16] MEDS: HumaLOG 300 UNITS/3 ML VIAL SC PRN ×3 (00:20→21:37)
[2022-04-16] MEDS ORDERED: Furosemide 40 MG/4 ML VIAL SLOW IVP SCH (06:00)
[2022-04-16 06:50] LABS: #Eosinphils 0.3 thou/uL (0.0-0.7); #Lymphocytes 2.8 thou/uL (1.20-3.40); #Monocytes 0.6 thou/uL (0.11-0.59); #Neutrophils 5.2 thou/uL (1.40-6.50); %Basophils 0.5 % (0.0-1.0); %Eosinophils 2.8 % (0.0-10.0); %Lymphocytes 31.4 % (21.0-51.0); %Monocytes 6.3 % (0.0-10.0); Hemoglobin 10.4 g/dL (12.0-16.0); Mean Corpuscular HGB CONC 34.3 g/dL (32.0-36.0); Mean Corpuscular Hemoglobin 32.8 pg (27.0-31.0); Mean Corpuscular Volume 95.8 fl (78.0-98.0); Mean Platelet Volume 7.6 fL (7.4-10.4); Platelet Count 333 10x3/uL (130-400); RBC Distribution Width 12.1 % (11.5-14.5); Red Blood Cell (RBC) Count 3.17 mill/uL (4.20-5.40); White Blood Cell (WBC) Count 8.8 10x3/uL (4.8-10.8)
[2022-04-16 07:08] LABS: Anion Gap 9 mmol/L (10-20); BUN (Urea Nitrogen) 18 mg/dL (9.8-20.1); Calc. Creatinine Clearance 70 mL/min (70-130); Calcium 7.7 mg/dL (7.8-10.44); Carbon Dioxide 21 mmol/L (22-29); Chloride 109 mmol/L (98-107); Estimated GFR 64; Glucose 158 mg/dL (70-105); Potassium 3.8 mmol/L (3.5-5.1); Sodium 135 mmol/L (136-145)
[2022-04-16] MEDS: Losartan 25 MG TAB PO SCH (08:23)
[2022-04-16] MEDS: Aspirin 81 mg Enteric Coated Tablet PO SCH (08:23)
[2022-04-16] MEDS: Famotidine 20 MG TAB PO SCH ×2 (08:23→21:36)
[2022-04-16] MEDS: Carvedilol 3.125 MG TAB PO SCH ×2 (08:23→16:04)
[2022-04-16] MEDS ORDERED: Communication Order-Pharmacy FS PRN (14:26)
[2022-04-16] MEDS: Atorvastatin Calcium 40 MG TAB PO SCH (21:36)
[2022-04-16] MEDS: Acetaminophen 325 MG TAB PO PRN (21:36)
[2022-04-16] MEDS: Saccharomyces boulardii 250 MG CAP PO SCH (21:36)
[2022-04-17] MEDS: Losartan 25 MG TAB PO SCH (05:39)
[2022-04-17] MEDS: Carvedilol 3.125 MG TAB PO SCH (05:40)
[2022-04-17] MEDS ORDERED: Midazolam HCl 5 mg/5 ml Vial ONE (06:31)
[2022-04-17] MEDS ORDERED: Fentanyl 250 MCG/5 ML VIAL ONE (06:31)
[2022-04-17] MEDS ORDERED: Insulin Regular 300 UNITS/3 ML VIAL ONE (06:32)
[2022-04-17] MEDS ORDERED: niCARdipine 25 MG/10 ML VIAL ONE (06:32)
[2022-04-17] MEDS ORDERED: Aminocaproic Acid 5 GM/20 ML VIAL ONE ×2 (06:32→07:42)
[2022-04-17] MEDS ORDERED: Norepinephrine 4 MG/4 ML VIAL ONE (06:32)
[2022-04-17] MEDS ORDERED: Rocuronium Bromide 50 MG/5 ML VIAL ONE (06:32)
[2022-04-17] MEDS ORDERED: EPINEPHrine 1 MG/ML AMP ONE (06:32)
[2022-04-17] MEDS ORDERED: Albumin 5% 500 ML ONE (06:42)
[2022-04-17] MEDS ORDERED: Heparin 10,000 UNITS/1 ML VIAL 30,000 UNITS in Sodium Chloride 0.9% 1,000 ML FS SCH (07:00)
[2022-04-17] MEDS ORDERED: Lidocaine 1% MPF 2 ML VIAL ONE (07:23)
[2022-04-17] MEDS ORDERED: Heparin 30,000 units/30 ml VIAL ONE (07:42)
[2022-04-17] MEDS ORDERED: Rocuronium Bromide 10 MG/ML (10ML VIAL) ONE (07:42)
[2022-04-17] MEDS ORDERED: Potassium Chloride 60 MEQ/30 ML VIAL ONE (07:42)
[2022-04-17] MEDS ORDERED: Thrombin 5000 UNITS/5 ML VIAL ONE (07:42)
[2022-04-17] MEDS ORDERED: Sodium Bicarb 50 MEQ/50 ML VIAL ONE (07:42)
[2022-04-17] MEDS ORDERED: Calcium Chloride 1 GM/10 ML Abboject SYRINGE ONE (07:42)
[2022-04-17] MEDS ORDERED: Papaverine 60 MG/2 ML VIAL ONE (07:42)
[2022-04-17] MEDS ORDERED: Cardioplegic Soln 1,000 ML BAG ONE (07:42)
[2022-04-17] MEDS ORDERED: Lidocaine 2% PF 100 mg/5 ml Syringe ONE (07:42)
[2022-04-17] MEDS ORDERED: PROPOFOL 200 MG/20 ML VIAL ONE (07:42)
[2022-04-17] MEDS ORDERED: Mannitol 12.5 GM/50 ML ONE (07:42)
[2022-04-17] MEDS ORDERED: Protamine Sulfate 250 MG/25 ML VIAL ONE (07:42)
[2022-04-17] MEDS ORDERED: Lidocaine 1% PF 5 ML VIAL ONE (07:42)
[2022-04-17] MEDS ORDERED: Vancomycin 1 GM VIAL ONE (07:42)
[2022-04-17] MEDS ORDERED: Magnesium 5 GM/10 ML VIAL ONE (07:42)
[2022-04-17] MEDS ORDERED: Heparin 5,000 UNITS/ML VIAL ONE (07:42)
[2022-04-17] MEDS ORDERED: PHENYLEPHRINE-NS 100 MCG/ML 10 ML SYRINGE ONE (09:10)
[2022-04-17] MEDS ORDERED: NOREPINEPHRINE 8 MG/250 ML-D5W 250 ML IVPB PRN (11:03)
[2022-04-17] MEDS ORDERED: Bisacodyl 10 MG SUPP PR PRN (11:03)
[2022-04-17] MEDS ORDERED: Mag-Al 1200 mg/1200 mg/30 ML UDCUP PO PRN (11:03)
[2022-04-17] MEDS ORDERED: Hetastarch 6% 500 ML 500 ML IVPB PRN (11:03)
[2022-04-17] MEDS ORDERED: Guaifenesin DM 100-10/5 ML UDCUP PO PRN (11:03)
[2022-04-17] MEDS ORDERED: Ipratropium/Albuterol 3 ML NEB NEB PRN (11:03)
[2022-04-17] MEDS ORDERED: Fentanyl 100 MCG/2 ML VIAL SLOW IVP PRN (11:03)
[2022-04-17] MEDS ORDERED: niCARdipine 25 MG in Sodium Chloride 0.9% 250 ML 250 ML IVPB PRN (11:03)
[2022-04-17] MEDS ORDERED: Post-Op Insulin Drip Protocol IVPB ONE (11:03)
[2022-04-17] MEDS ORDERED: Bisacodyl 5 MG TAB PO PRN (11:03)
[2022-04-17] MEDS ORDERED: hydrALAZINE 20 MG/ML VIAL SLOW IVP PRN (11:03)
[2022-04-17] MEDS ORDERED: HYDROcodone/Acetaminophen 5/325 mg Tablet PO PRN (11:03)
[2022-04-17] MEDS ORDERED: HUMULIN R 100 UNITS in Sodium Chloride 0.9% 100 ML IVPB SCH (11:15)
[2022-04-17] MEDS ORDERED: Dextrose 5% in Water 1,000 ML IV PRN (11:15)
[2022-04-17] MEDS ORDERED: Dextrose 50% Abboject 50 ML SYRINGE SLOW IVP PRN (11:15)
[2022-04-17 11:50] LABS: #Eosinphils 0.3 thou/uL (0.0-0.7); #Neutrophils 10.2 thou/uL (1.40-6.50); %Basophils 0.2 % (0.0-1.0); %Lymphocytes 14.8 % (21.0-51.0); %Monocytes 7.5 % (0.0-10.0); %Neutrophils 75.4 % (42.0-75.0); Hemoglobin 8.3 g/dL (12.0-16.0); Mean Corpuscular HGB CONC 33.3 g/dL (32.0-36.0); Mean Corpuscular Hemoglobin 31.8 pg (27.0-31.0); Mean Corpuscular Volume 95.5 fl (78.0-98.0); Mean Platelet Volume 7.6 fL (7.4-10.4); Platelet Count 277 10x3/uL (130-400); RBC Distribution Width 12.1 % (11.5-14.5); Red Blood Cell (RBC) Count 2.61 mill/uL (4.20-5.40); White Blood Cell (WBC) Count 13.6 10x3/uL (4.8-10.8)
[2022-04-17 12:03] LABS: Actual Bicarbonate (HCO3a) 20.5 mEq/L (22-28); Base Excess (BEa) -2.9 mEq/L (-2.0 to +3.0); CO2 Tension 29.7 mmHg (35.0-45.0); Calcium, Ionized (arterial) 1.14 mmol/L (1.12-1.30); Carboxyhemoglobin (COHb) 0.3 gm% (0.0-3.0); Hemoglobin (Hb) 7.6 g/dL (12.0-16.0); O2 Tension (PaO2), arterial 187.6 mmHg (> 80.0); Potassium - ABG Lab 3.52 mmol/L (3.70-5.30); pH, Arterial 7.46 (7.35-7.45)
[2022-04-17 12:07] LABS: INR-International Normal Ratio 1.2; PTT 35.4 sec (22.9-36.1); Prothrombin Time 15.1 sec (12.0-14.7)
[2022-04-17] MEDS: Ketorolac Tromethamine 30 MG/ML VIAL IVP SCH ×3 (12:22→23:36)
[2022-04-17] MEDS: Lactated Ringer's 500 ML IV SCH (12:23)
[2022-04-17 12:32] LABS: Anion Gap 8 mmol/L (10-20); BUN (Urea Nitrogen) 17 mg/dL (9.8-20.1); Calc. Creatinine Clearance 100 mL/min (70-130); Calcium 7.8 mg/dL (7.8-10.44); Carbon Dioxide 19 mmol/L (22-29); Chloride 114 mmol/L (98-107); Estimated GFR 75; Glucose 189 mg/dL (70-105); Potassium 3.7 mmol/L (3.5-5.1); Sodium 137 mmol/L (136-145)
[2022-04-17 13:30] LABS: ALV-art Gradient 131.775 mmHg (0-20); Puncture Site Arterial Line
[2022-04-17] MEDS: CEFAZOLIN 2 GM in Sodium Chloride 0.9% 100 ML IVPB SCH ×2 (14:45→23:31)
[2022-04-17] MEDS: Fentanyl 100 MCG/2 ML VIAL SLOW IVP PRN ×2 (15:31→17:43)
[2022-04-17 16:53] LABS: Hemoglobin 7.9 g/dL (12.0-16.0)
[2022-04-17] MEDS: Morphine 4 MG/ML VIAL SLOW IVP PRN ×2 (17:05→19:50)
[2022-04-17 17:06] LABS: Potassium 3.5 mmol/L (3.5-5.1)
[2022-04-17] MEDS: Potassium Chloride 20 MEQ/100 ML PREMIX BAG IVPB PRN (17:44)
[2022-04-17] MEDS: Famotidine/PF 20 mg/2ml Vial SLOW IVP SCH (20:25)
[2022-04-17 22:32] LABS: Actual Bicarbonate (HCO3a) 18.3 mEq/L (22-28); Base Excess (BEa) -4.7 mEq/L (-2.0 to +3.0); CO2 Tension 27.5 mmHg (35.0-45.0); Calcium, Ionized (arterial) 1.14 mmol/L (1.12-1.30); Carboxyhemoglobin (COHb) 0.3 gm% (0.0-3.0); Hemoglobin (Hb) 10.5 g/dL (12.0-16.0); O2 Tension (PaO2), arterial 187.8 mmHg (> 80.0); pH, Arterial 7.44 (7.35-7.45)
[2022-04-17 22:44] LABS: Puncture Site Arterial Line
[2022-04-17 22:45] LABS: ALV-art Gradient 63.025 mmHg (0-20)
[2022-04-18] MEDS: Lactated Ringer's 500 ML IV SCH ×2 (02:08→07:45)
[2022-04-18 04:28] LABS: #Eosinphils 0.1 thou/uL (0.0-0.7); #Lymphocytes 1.6 thou/uL (1.20-3.40); #Monocytes 0.7 thou/uL (0.11-0.59); #Neutrophils 8.2 thou/uL (1.40-6.50); %Basophils 0.2 % (0.0-1.0); %Eosinophils 1.1 % (0.0-10.0); %Lymphocytes 14.5 % (21.0-51.0); %Monocytes 6.9 % (0.0-10.0); %Neutrophils 77.3 % (42.0-75.0); Hemoglobin 9.1 g/dL (12.0-16.0); Mean Corpuscular HGB CONC 33.2 g/dL (32.0-36.0); Mean Corpuscular Hemoglobin 31.1 pg (27.0-31.0); Mean Corpuscular Volume 93.6 fl (78.0-98.0); Mean Platelet Volume 8.1 fL (7.4-10.4); Platelet Count 215 10x3/uL (130-400); RBC Distribution Width 13.5 % (11.5-14.5); Red Blood Cell (RBC) Count 2.92 mill/uL (4.20-5.40); White Blood Cell (WBC) Count 10.7 10x3/uL (4.8-10.8)
[2022-04-18 04:47] LABS: Anion Gap 10 mmol/L (10-20); BUN (Urea Nitrogen) 19 mg/dL (9.8-20.1); Calc. Creatinine Clearance 109 mL/min (70-130); Calcium 7.8 mg/dL (7.8-10.44); Carbon Dioxide 19 mmol/L (22-29); Chloride 113 mmol/L (98-107); Estimated GFR 83; Glucose 134 mg/dL (70-105); Potassium 4.2 mmol/L (3.5-5.1); Sodium 138 mmol/L (136-145)
[2022-04-18] MEDS: CEFAZOLIN 2 GM in Sodium Chloride 0.9% 100 ML IVPB SCH (05:43)
[2022-04-18] MEDS: Ondansetron PF 4 MG/2 ML Vial IVP PRN ×2 (05:43→18:49)
[2022-04-18] MEDS: Ketorolac Tromethamine 30 MG/ML VIAL IVP SCH (05:43)
[2022-04-18] MEDS: Insulin Glargine 30 UNITS/0.3 ML VIAL SC SCH ×2 (07:52→21:08)
[2022-04-18] MEDS: Aspirin 325 MG TAB PO SCH (07:52)
[2022-04-18] MEDS: Famotidine/PF 20 mg/2ml Vial SLOW IVP SCH ×2 (07:52→21:08)
[2022-04-18] MEDS: HYDROcodone/Acetaminophen 5/325 mg Tablet PO PRN (10:16)
[2022-04-18] MEDS ORDERED: Insulin Glargine 30 UNITS/0.3 ML VIAL SC PRN (11:10)
[2022-04-18] MEDS: Insulin Regular 300 UNITS/3 ML VIAL SC PRN ×3 (11:57→21:19)
[2022-04-18] MEDS: Torsemide 20 MG TAB PO SCH (14:28)
[2022-04-18] MEDS ORDERED: DOBUTamine 500 mg/250 ml 500 MG in Premix Bag 1 BAG IVPB SCH (15:00)
[2022-04-18] MEDS ORDERED: DOPamine 400 MG/D5W 250 ML 250 ML IVPB SCH (16:45)
[2022-04-19] MEDS: Insulin Regular 300 UNITS/3 ML VIAL SC PRN ×3 (00:20→20:04)
[2022-04-19] MEDS: Ondansetron PF 4 MG/2 ML Vial IVP PRN (01:54)
[2022-04-19 03:57] LABS: #Eosinphils 0.1 thou/uL (0.0-0.7); #Lymphocytes 1.6 thou/uL (1.20-3.40); #Monocytes 1.6 thou/uL (0.11-0.59); #Neutrophils 13.3 thou/uL (1.40-6.50); %Basophils 0.2 % (0.0-1.0); %Eosinophils 0.8 % (0.0-10.0); %Lymphocytes 9.7 % (21.0-51.0); %Monocytes 9.6 % (0.0-10.0); %Neutrophils 79.7 % (42.0-75.0); Hemoglobin 10.5 g/dL (12.0-16.0); Mean Corpuscular Hemoglobin 31.8 pg (27.0-31.0); Mean Corpuscular Volume 93.6 fl (78.0-98.0); Mean Platelet Volume 7.7 fL (7.4-10.4); Platelet Count 235 10x3/uL (130-400); RBC Distribution Width 13.7 % (11.5-14.5); Red Blood Cell (RBC) Count 3.32 mill/uL (4.20-5.40); White Blood Cell (WBC) Count 16.7 10x3/uL (4.8-10.8)
[2022-04-19 04:17] LABS: Anion Gap 10 mmol/L (10-20); BUN (Urea Nitrogen) 20 mg/dL (9.8-20.1); Calc. Creatinine Clearance 92 mL/min (70-130); Calcium 7.9 mg/dL (7.8-10.44); Carbon Dioxide 21 mmol/L (22-29); Chloride 110 mmol/L (98-107); Estimated GFR 69; Glucose 88 mg/dL (70-105); Potassium 3.9 mmol/L (3.5-5.1); Sodium 137 mmol/L (136-145)
[2022-04-19] MEDS: Potassium Chloride 20 MEQ/100 ML PREMIX BAG IVPB PRN (06:01)
[2022-04-19] MEDS: Famotidine/PF 20 mg/2ml Vial SLOW IVP SCH (08:37)
[2022-04-19] MEDS: Aspirin 325 MG TAB PO SCH (08:37)
[2022-04-19] MEDS: Insulin Glargine 30 UNITS/0.3 ML VIAL SC SCH ×2 (08:37→20:04)
[2022-04-19] MEDS: Torsemide 20 MG TAB PO SCH ×2 (08:43→14:00)
[2022-04-19] MEDS ORDERED: Nitroglycerin 0.4 MG TAB (25 Tab Bottle) SL PRN (14:08)
[2022-04-19] MEDS ORDERED: Potassium Chloride 10 MEQ TAB PO SCH (14:15)
[2022-04-19] MEDS ORDERED: Polyethylene Glycol 3350 17 GM Packet PO SCH (14:15)
[2022-04-19] MEDS ORDERED: Dextrose 5% in Water 1,000 ML IV PRN (14:30)
[2022-04-19] MEDS ORDERED: Dextrose 50% Abboject 50 ML SYRINGE SLOW IVP PRN (14:30)
[2022-04-19] MEDS ORDERED: Famotidine 20 MG TAB PO SCH (14:30)
[2022-04-19] MEDS: HYDROcodone/Acetaminophen 5/325 mg Tablet PO PRN (17:16)
[2022-04-19] MEDS: Famotidine 20 MG TAB PO SCH (20:03)
[2022-04-19] MEDS: Atorvastatin Calcium 20 MG TAB PO SCH (20:03)
[2022-04-20] MEDS: Insulin Regular 300 UNITS/3 ML VIAL SC PRN ×3 (06:33→16:57)
[2022-04-20] MEDS: Famotidine 20 MG TAB PO SCH ×2 (09:37→21:20)
[2022-04-20] MEDS: Insulin Glargine 30 UNITS/0.3 ML VIAL SC SCH ×2 (09:37→21:21)
[2022-04-20] MEDS: Aspirin 325 MG TAB PO SCH (09:37)
[2022-04-20] MEDS: Potassium Chloride 10 MEQ TAB PO SCH ×2 (09:37→19:33)
[2022-04-20] MEDS: Polyethylene Glycol 3350 17 GM Packet PO SCH (09:37)
[2022-04-20] MEDS: Torsemide 20 MG TAB PO SCH ×2 (09:43→13:47)
[2022-04-20] MEDS: HYDROcodone/Acetaminophen 5/325 mg Tablet PO PRN (19:44)
[2022-04-20] MEDS: Atorvastatin Calcium 20 MG TAB PO SCH (21:20)
[2022-04-21] MEDS ORDERED: Metolazone 5 MG TAB PO SCH (07:45)
[2022-04-21] MEDS: Potassium Chloride 10 MEQ TAB PO SCH ×2 (09:31→18:36)
[2022-04-21] MEDS: Torsemide 20 MG TAB PO SCH ×2 (09:31→14:55)
[2022-04-21] MEDS: Insulin Glargine 30 UNITS/0.3 ML VIAL SC SCH ×2 (09:32→21:18)
[2022-04-21] MEDS: Famotidine 20 MG TAB PO SCH ×2 (09:32→21:18)
[2022-04-21] MEDS: Polyethylene Glycol 3350 17 GM Packet PO SCH (09:32)
[2022-04-21] MEDS: Aspirin 325 MG TAB PO SCH (09:32)
[2022-04-21 10:02] LABS: Anion Gap 13 mmol/L (10-20); BUN (Urea Nitrogen) 27 mg/dL (9.8-20.1); Calc. Creatinine Clearance 77 mL/min (70-130); Carbon Dioxide 21 mmol/L (22-29); Chloride 103 mmol/L (98-107); Estimated GFR 56; Glucose 99 mg/dL (70-105); Potassium 4.5 mmol/L (3.5-5.1); Sodium 132 mmol/L (136-145)
[2022-04-21] MEDS: Insulin Regular 300 UNITS/3 ML VIAL SC PRN (14:55)
[2022-04-21] MEDS: Atorvastatin Calcium 20 MG TAB PO SCH (21:18)
[2022-04-21] MEDS: Acetaminophen 325 MG TAB PO PRN (21:20)
[2022-04-22] MEDS: Insulin Regular 300 UNITS/3 ML VIAL SC PRN ×2 (05:09→17:04)
[2022-04-22] MEDS: Potassium Chloride 10 MEQ TAB PO SCH ×2 (09:48→17:04)
[2022-04-22] MEDS: Aspirin 325 MG TAB PO SCH (09:49)
[2022-04-22] MEDS: Insulin Glargine 30 UNITS/0.3 ML VIAL SC SCH ×2 (09:49→20:44)
[2022-04-22] MEDS: Torsemide 20 MG TAB PO SCH ×2 (09:49→14:58)
[2022-04-22] MEDS: Famotidine 20 MG TAB PO SCH ×2 (09:49→20:44)
[2022-04-22] MEDS: Polyethylene Glycol 3350 17 GM Packet PO SCH (11:00)
[2022-04-22] MEDS: Metoprolol Tartrate 25 MG TAB PO SCH (20:43)
[2022-04-22] MEDS: Acetaminophen 325 MG TAB PO PRN (20:44)
[2022-04-22] MEDS: Atorvastatin Calcium 20 MG TAB PO SCH (20:44)
[2022-04-23 05:11] LABS: #Basophils 0.1 thou/uL (0.0-0.2); #Eosinphils 0.3 thou/uL (0.0-0.7); #Lymphocytes 2.3 thou/uL (1.20-3.40); #Monocytes 0.6 thou/uL (0.11-0.59); %Basophils 0.7 % (0.0-1.0); %Eosinophils 3.1 % (0.0-10.0); %Lymphocytes 28.1 % (21.0-51.0); %Monocytes 7.6 % (0.0-10.0); %Neutrophils 60.4 % (42.0-75.0); Hemoglobin 9.2 g/dL (12.0-16.0); Mean Corpuscular HGB CONC 32.5 g/dL (32.0-36.0); Mean Corpuscular Volume 95.3 fl (78.0-98.0); Mean Platelet Volume 7.2 fL (7.4-10.4); Platelet Count 300 10x3/uL (130-400); RBC Distribution Width 12.4 % (11.5-14.5); Red Blood Cell (RBC) Count 2.96 mill/uL (4.20-5.40); White Blood Cell (WBC) Count 8.3 10x3/uL (4.8-10.8)
[2022-04-23] MEDS: Acetaminophen 325 MG TAB PO PRN (09:25)
[2022-04-23] MEDS: Famotidine 20 MG TAB PO SCH ×2 (09:27→21:40)
[2022-04-23] MEDS: Polyethylene Glycol 3350 17 GM Packet PO SCH (09:27)
[2022-04-23] MEDS: Metoprolol Tartrate 25 MG TAB PO SCH ×2 (09:27→21:39)
[2022-04-23] MEDS: Potassium Chloride 10 MEQ TAB PO SCH ×2 (09:27→16:59)
[2022-04-23] MEDS: Aspirin 325 MG TAB PO SCH (09:27)
[2022-04-23] MEDS: Insulin Glargine 30 UNITS/0.3 ML VIAL SC SCH ×2 (09:27→21:39)
[2022-04-23] MEDS: Torsemide 20 MG TAB PO SCH ×2 (09:29→14:21)
[2022-04-23] MEDS: Insulin Regular 300 UNITS/3 ML VIAL SC PRN ×2 (12:44→16:59)
[2022-04-23] MEDS: Atorvastatin Calcium 20 MG TAB PO SCH (21:39)
[2022-04-24] MEDS: HYDROcodone/Acetaminophen 5/325 mg Tablet PO PRN (02:27)
[2022-04-24 05:18] LABS: Anion Gap 12 mmol/L (10-20); BUN (Urea Nitrogen) 32 mg/dL (9.8-20.1); Calc. Creatinine Clearance 68 mL/min (70-130); Carbon Dioxide 25 mmol/L (22-29); Chloride 99 mmol/L (98-107); Estimated GFR 50; Glucose 144 mg/dL (70-105); Potassium 4.1 mmol/L (3.5-5.1); Sodium 132 mmol/L (136-145)
[2022-04-24] MEDS ORDERED: Torsemide 20 MG TAB PO SCH (09:00)
[2022-04-24] MEDS: Aspirin 325 MG TAB PO SCH (09:52)
[2022-04-24] MEDS: Metoprolol Tartrate 25 MG TAB PO SCH ×2 (09:52→22:34)
[2022-04-24] MEDS: Famotidine 20 MG TAB PO SCH ×2 (09:53→22:34)
[2022-04-24] MEDS: Insulin Glargine 30 UNITS/0.3 ML VIAL SC SCH ×2 (09:54→22:34)
[2022-04-24] MEDS: Acetaminophen 325 MG TAB PO PRN ×2 (09:59→22:37)
[2022-04-24] MEDS: Polyethylene Glycol 3350 17 GM Packet PO SCH (10:09)
[2022-04-24] MEDS: Insulin Regular 300 UNITS/3 ML VIAL SC PRN (18:19)
[2022-04-24] MEDS: Atorvastatin Calcium 20 MG TAB PO SCH (22:34)
[2022-04-25 04:32] LABS: #Eosinphils 0.3 thou/uL (0.0-0.7); #Monocytes 0.8 thou/uL (0.11-0.59); #Neutrophils 7.1 thou/uL (1.40-6.50); %Basophils 0.5 % (0.0-1.0); %Lymphocytes 19.7 % (21.0-51.0); %Monocytes 7.5 % (0.0-10.0); %Neutrophils 69.4 % (42.0-75.0); Mean Corpuscular HGB CONC 33.8 g/dL (32.0-36.0); Mean Corpuscular Hemoglobin 31.9 pg (27.0-31.0); Mean Corpuscular Volume 94.4 fl (78.0-98.0); Mean Platelet Volume 6.6 fL (7.4-10.4); Platelet Count 434 10x3/uL (130-400); RBC Distribution Width 12.4 % (11.5-14.5); Red Blood Cell (RBC) Count 2.83 mill/uL (4.20-5.40); White Blood Cell (WBC) Count 10.2 10x3/uL (4.8-10.8)
[2022-04-25] MEDS: HYDROcodone/Acetaminophen 5/325 mg Tablet PO PRN ×2 (04:57→21:02)
[2022-04-25 04:58] LABS: Anion Gap 11 mmol/L (10-20); BUN (Urea Nitrogen) 36 mg/dL (9.8-20.1); Calc. Creatinine Clearance 60 mL/min (70-130); Calcium 8.4 mg/dL (7.8-10.44); Carbon Dioxide 27 mmol/L (22-29); Chloride 98 mmol/L (98-107); Estimated GFR 43; Glucose 161 mg/dL (70-105); Potassium 4.2 mmol/L (3.5-5.1); Sodium 132 mmol/L (136-145)
[2022-04-25] MEDS: Polyethylene Glycol 3350 17 GM Packet PO SCH (09:39)
[2022-04-25] MEDS: Aspirin 325 MG TAB PO SCH (09:44)
[2022-04-25] MEDS: Insulin Glargine 30 UNITS/0.3 ML VIAL SC SCH ×2 (09:44→21:03)
[2022-04-25] MEDS: Metoprolol Tartrate 25 MG TAB PO SCH ×2 (09:44→21:03)
[2022-04-25] MEDS: Famotidine 20 MG TAB PO SCH ×2 (09:45→21:03)
[2022-04-25] MEDS: Insulin Regular 300 UNITS/3 ML VIAL SC PRN ×2 (11:36→18:39)
[2022-04-25] MEDS ORDERED: Lactated Ringer's 1,000 ML IV SCH (14:45)
[2022-04-25] MEDS: Heparin 5,000 UNITS/ML VIAL SC SCH ×2 (16:30→21:03)
[2022-04-25] MEDS: Atorvastatin Calcium 20 MG TAB PO SCH (21:03)
[2022-04-26 05:02] LABS: #Eosinphils 0.2 thou/uL (0.0-0.7); #Lymphocytes 2.3 thou/uL (1.20-3.40); #Monocytes 0.7 thou/uL (0.11-0.59); #Neutrophils 7.5 thou/uL (1.40-6.50); %Basophils 0.4 % (0.0-1.0); %Eosinophils 1.9 % (0.0-10.0); %Lymphocytes 21.5 % (21.0-51.0); %Monocytes 6.7 % (0.0-10.0); %Neutrophils 69.4 % (42.0-75.0); Hemoglobin 8.1 g/dL (12.0-16.0); Mean Corpuscular HGB CONC 33.5 g/dL (32.0-36.0); Mean Corpuscular Hemoglobin 31.6 pg (27.0-31.0); Mean Corpuscular Volume 94.2 fl (78.0-98.0); Mean Platelet Volume 6.8 fL (7.4-10.4); Platelet Count 442 10x3/uL (130-400); RBC Distribution Width 12.2 % (11.5-14.5); Red Blood Cell (RBC) Count 2.57 mill/uL (4.20-5.40); White Blood Cell (WBC) Count 10.8 10x3/uL (4.8-10.8)
[2022-04-26 05:21] LABS: Anion Gap 13 mmol/L (10-20); BUN (Urea Nitrogen) 35 mg/dL (9.8-20.1); Calc. Creatinine Clearance 64 mL/min (70-130); Calcium 8.1 mg/dL (7.8-10.44); Carbon Dioxide 25 mmol/L (22-29); Chloride 98 mmol/L (98-107); Estimated GFR 48; Glucose 157 mg/dL (70-105); Potassium 3.8 mmol/L (3.5-5.1); Sodium 132 mmol/L (136-145)
[2022-04-26] MEDS: Heparin 5,000 UNITS/ML VIAL SC SCH ×3 (09:22→20:46)
[2022-04-26] MEDS: Aspirin 325 MG TAB PO SCH (09:23)
[2022-04-26] MEDS: Metoprolol Tartrate 25 MG TAB PO SCH ×2 (09:23→20:45)
[2022-04-26] MEDS: Insulin Glargine 30 UNITS/0.3 ML VIAL SC SCH ×2 (09:24→20:45)
[2022-04-26] MEDS: Polyethylene Glycol 3350 17 GM Packet PO SCH (09:24)
[2022-04-26] MEDS: Famotidine 20 MG TAB PO SCH ×2 (09:24→20:45)
[2022-04-26] MEDS: Acetaminophen 325 MG TAB PO PRN (10:24)
[2022-04-26] MEDS: Insulin Regular 300 UNITS/3 ML VIAL SC PRN ×2 (11:28→15:49)
[2022-04-26 14:30] VITALS: BMI 34.2
[2022-04-26] MEDS: Atorvastatin Calcium 20 MG TAB PO SCH (20:45)
[2022-04-27] MEDS: Acetaminophen 325 MG TAB PO PRN (01:23)
[2022-04-27 04:30] LABS: #Eosinphils 0.2 thou/uL (0.0-0.7); #Monocytes 0.7 thou/uL (0.11-0.59); %Basophils 0.3 % (0.0-1.0); %Eosinophils 2.7 % (0.0-10.0); %Lymphocytes 22.1 % (21.0-51.0); %Neutrophils 66.8 % (42.0-75.0); Hemoglobin 8.3 g/dL (12.0-16.0); Mean Corpuscular Volume 94.1 fl (78.0-98.0); Mean Platelet Volume 6.6 fL (7.4-10.4); Platelet Count 445 10x3/uL (130-400); RBC Distribution Width 12.2 % (11.5-14.5); Red Blood Cell (RBC) Count 2.59 mill/uL (4.20-5.40); White Blood Cell (WBC) Count 8.9 10x3/uL (4.8-10.8)
[2022-04-27 04:55] LABS: Anion Gap 11 mmol/L (10-20); BUN (Urea Nitrogen) 36 mg/dL (9.8-20.1); Calc. Creatinine Clearance 60 mL/min (70-130); Calcium 8.1 mg/dL (7.8-10.44); Carbon Dioxide 25 mmol/L (22-29); Chloride 99 mmol/L (98-107); Estimated GFR 44; Glucose 173 mg/dL (70-105); Potassium 3.7 mmol/L (3.5-5.1); Sodium 131 mmol/L (136-145)
[2022-04-27 07:53] VITALS: TEMP 97.8
[2022-04-27] MEDS ORDERED: Furosemide 20 MG TAB PO SCH (09:00)
[2022-04-27] MEDS: Insulin Glargine 30 UNITS/0.3 ML VIAL SC SCH (09:27)
[2022-04-27] MEDS: Metoprolol Tartrate 25 MG TAB PO SCH (09:28)
[2022-04-27] MEDS: Aspirin 325 MG TAB PO SCH (09:28)
[2022-04-27] MEDS: Heparin 5,000 UNITS/ML VIAL SC SCH (09:28)
[2022-04-27] MEDS: Polyethylene Glycol 3350 17 GM Packet PO SCH (09:28)
[2022-04-27] MEDS: Famotidine 20 MG TAB PO SCH (09:28)
[2022-04-27] MEDS: Insulin Regular 300 UNITS/3 ML VIAL SC PRN (11:25)
[2022-04-27 12:17] VITALS: BP 136/67
[2022-04-27] MEDS ORDERED: Insulin Glargine 30 UNITS/0.3 ML VIAL SC SCH (21:00)
== END 2022-04-27 16:08 | disposition home or self-care (01) | DRG 233 ==
LOC: ERS 17:32 → IMCU/EMU 22:05 → 2NO 04-14 19:49 → CCU 04-17 06:18 → 2NO 04-19 23:31
PROVIDERS: ADMIT Hospitalist; ATTEND Hospitalist
PROC: 4A023N7 Measurement of Cardiac Sampling and Pressure, Left Heart, Percutaneous Approach (ICD-10-PCS; 2022-04-15)
PROC: B2111ZZ Fluoroscopy of Multiple Coronary Arteries using Low Osmolar Contrast (ICD-10-PCS; 2022-04-15)
PROC: B2161ZZ Fluoroscopy of Right and Left Heart using Low Osmolar Contrast (ICD-10-PCS; 2022-04-15)
PROC: 02100Z9 Bypass Coronary Artery, One Artery from Left Internal Mammary, Open Approach (ICD-10-PCS; principal; 2022-04-17)
PROC: 021209W Bypass Coronary Artery, Three Arteries from Aorta with Autologous Venous Tissue, Open Approach (ICD-10-PCS; 2022-04-17)
PROC: 06BQ3ZZ Excision of Left Saphenous Vein, Percutaneous Approach (ICD-10-PCS; 2022-04-17)
PROC: 06BP0ZZ Excision of Right Saphenous Vein, Open Approach (ICD-10-PCS; 2022-04-17)
PROC: 5A1221Z Performance of Cardiac Output, Continuous (ICD-10-PCS; 2022-04-17)
PROC: 02L70CK Occlusion of Left Atrial Appendage with Extraluminal Device, Open Approach (ICD-10-PCS; 2022-04-17)
PROC: 30233N1 Transfusion of Nonautologous Red Blood Cells into Peripheral Vein, Percutaneous Approach (ICD-10-PCS; 2022-04-18)
PROC: 3E033XZ Introduction of Vasopressor into Peripheral Vein, Percutaneous Approach (ICD-10-PCS; 2022-04-18)
DX: I21.4 Non-ST elevation (NSTEMI) myocardial infarction (principal); E11.10 Type 2 diabetes mellitus with ketoacidosis without coma; N17.9 Acute kidney failure, unspecified; I50.22 Chronic systolic (congestive) heart failure; I42.0 Dilated cardiomyopathy; I13.0 Hypertensive heart and chronic kidney disease with heart failure and stage 1 through stage 4 chronic kidney disease, or unspecified chronic kidney disease; Z20.822 Contact with and (suspected) exposure to COVID-19; I25.10 Atherosclerotic heart disease of native coronary artery without angina pectoris; E11.42 Type 2 diabetes mellitus with diabetic polyneuropathy; E78.5 Hyperlipidemia, unspecified; E86.1 Hypovolemia; E86.0 Dehydration; R19.7 Diarrhea, unspecified; R11.2 Nausea with vomiting, unspecified; N18.2 Chronic kidney disease, stage 2 (mild); Z78.1 Physical restraint status; Z95.1 Presence of aortocoronary bypass graft; I25.2 Old myocardial infarction; Z98.890 Other specified postprocedural states; Z82.3 Family history of stroke; Z82.49 Family history of ischemic heart disease and other diseases of the circulatory system; Z79.899 Other long term (current) drug therapy; Z79.82 Long term (current) use of aspirin; Z79.84 Long term (current) use of oral hypoglycemic drugs
CPT/HCPCS: 36415; 36416; 36430; 71045; 71046; 74177; 76705; 80048; 80053; 80061; 81003; 81015; 82010; 82553; 82805; 83036; 83605; 83630; 83690; 83735; 83880; 84100; 84145; 84484; 85025; 85610; 85730; 86140; 86850; 86900; 86901; 87040; 87070; 87205; 87324; 87328; 87329; 87449; 87505; 87804; 87811; 87899; 93005; 93010; 93306; 93458; 93798; 93880; 94002; 94150; 96372; 96374; 96375; 96376; 99152; 99156; C1751; C1769; C1776; C1894; C9113; J0153; J0171; J0360; J0456; J0696; J0780; J1250; J1265; J1611; J1642; J1644; J1650; J1815; J1885; J1940; J2001; J2150; J2250; J2270; J2405; J2440; J2704; J2720; J3010; J3370; J3475; J3480; J3490; J7050; J7070; J7120; P9016; P9045; Q9967; S0017; S0028; U0002